=== PATIENT | male | born 1990 | race Caucasian/White ===

== ENCOUNTER 2024-01-05 14:03 | Emergency (ER) | payer MEDICAID, OTHER ==
[~2024-01-05] VITALS: Ht 170.2 cm; Wt 149.3 kg
[~2024-01-05 14:03] MED LIST: LEVAHFA IH
[2024-01-05] MEDS ORDERED: OXYC-38 PO (16:11)
[2024-01-05] MEDS: OxyCODONE HCL/ACETAMINOPHEN 5-325 MG TABLET PO ONE (17:41)
[2024-01-05 18:35] VITALS: BP 145/102; PULSE 72; RESP 17; TEMP 97.8; O2SAT 100
== END 2024-01-05 19:28 | disposition home or self-care (01) ==
LOC: EMS 14:04
DX: S82.401A Unspecified fracture of shaft of right fibula, initial encounter for closed fracture (principal); W19.XXXA Unspecified fall, initial encounter; Y93.89 Activity, other specified; Y92.89 Other specified places as the place of occurrence of the external cause; Y99.8 Other external cause status
CPT/HCPCS: 29515; 99283; 99284

== ENCOUNTER 2024-12-13 19:14 | Emergency (ER) | payer OTHER ==
[~2024-12-13] VITALS: Ht 175.3 cm; Wt 136.4 kg
[~2024-12-13 19:14] MED LIST changes: +BACI28.410 TP; +HEPA50009 SQ; -LEVAHFA IH; +OXYC-38 PO; +PANT-31 PO
[2024-12-13 19:20] VITALS: TEMP 98.1
[2024-12-13 19:30] VITALS: BP 156/91; PULSE 97; RESP 17; O2SAT 97
[2024-12-13 19:58] LABS: PLATELET COUNT (AUTO) 349 K/uL (150-450); RED BLOOD CELL COUNT(AUTO) 5.78 MIL/uL (4.50-5.90); RED CELL DISTRIBUTION WIDTH 19.9 % (11.5-14.5); WHITE BLOOD COUNT (AUTO) 14.6 K/uL (4.5-11.0)
[2024-12-13 20:06] LABS: CALCIUM, TOTAL 9.2 mg/dL (8.8-10.5); CREATININE 1.03 mg/dL (0.60-1.30); GLOMERULAR FILTR. RATE CALC > 60 mL/min (>60); GLUCOSE,RANDOM 159 mg/dL (70-110); SODIUM SERUM 142 mmol/L (136-145); UREA NITROGEN, BLOOD 15 mg/dL (7-18)
[2024-12-13 20:18] LABS: RBC MORPHOLOGY COMMENT ABNORMAL RBC MORPH
[2024-12-13] MEDS ORDERED: PRED-554 PO (20:53)
[2024-12-13] MEDS ORDERED: ACYC-138 PO (20:54)
== END 2024-12-13 20:58 | disposition home or self-care (01) ==
LOC: EMS 19:14
DX: G51.0 Bell's palsy (principal); Z79.899 Other long term (current) drug therapy
CPT/HCPCS: 99283; 80048; 85025; 36415; J7512